=== PATIENT | male | born 1980 | race Caucasian/White ===

== ENCOUNTER 2024-12-07 04:58 | Emergency (ER) | payer BC ==
[~2024-12-07] VITALS: Ht 182.9 cm; Wt 122.5 kg
[2024-12-07] MEDS ORDERED: BENZ-13 PO (06:23)
[2024-12-07] MEDS ORDERED: IBUP-1955 PO (06:23)
[2024-12-07 06:27] VITALS: BP 148/98; TEMP 97.9; O2SAT 97
== END 2024-12-07 06:27 | disposition home or self-care (01) ==
LOC: ER 05:02
DX: J06.9 Acute upper respiratory infection, unspecified (principal); J02.9 Acute pharyngitis, unspecified; E11.9 Type 2 diabetes mellitus without complications; R06.02 Shortness of breath; F17.200 Nicotine dependence, unspecified, uncomplicated; R05.9 Cough, unspecified; I10 Essential (primary) hypertension; Z60.2 Problems related to living alone
CPT/HCPCS: 86403-TC; 87070-TC